=== PATIENT | female | born 1980 | race Hispanic/Latino ===

== ENCOUNTER 2019-10-12 13:08 | Emergency (ER) | payer BC ==
[2019-10-12 15:44] LABS: Urine Blood NEGATIVE (NEG); Urine Glucose NEGATIVE (NEG); Urine Protein NEGATIVE (NEG); Urine Specific Gravity 1.015 (1.005-1.030); Urine pH 7.5 (5.0-7.0)
--- NOTE | 2019-10-12 16:41 | ER ---
Nurse's Notes [facility] Name: Shy Cuadra Age: 39 yrs Sex: Female : 1980 Arrival Date: 10/12/2019 Time: 13:09 Bed 16 Private MD: Diagnosis: Dizziness and giddiness Presentation: 10/12 13:36 Presenting complaint: Patient states: "I'm taking a class at the [email or web address], and i was at 1 class and right as it ended I felt like I was going to faint or pass out" Patient reports that she was still sitting at the time, but she leaned over her backpack to put her stuff in it. Patient reports that she is still having dizziness on and off, along with palpitations. Transition of care: patient was not received from another setting of care. Onset of symptoms was October 12, 2019. Risk Assessment: Do you want to hurt yourself or someone else? Patient reports no desire to harm self or others. Initial Sepsis Screen: Does the patient meet any 2 criteria? HR > 90 bpm. No. Patient's initial sepsis screen is negative. Does the patient have a suspected source of infection? Yes: Acute abdominal pain. Care prior to arrival: None. 13:36 Method Of Arrival: Ambulatory aj1 13:36 Acuity: DEEPAK 3 aj1 Triage Assessment: 13:38 General: Appears in no apparent distress. comfortable, Behavior is calm, cooperative, aj1 appropriate for age. Pain: Complains of pain in right upper quadrant and left upper quadrant. Neuro: Level of Consciousness is awake, alert, confused. Neuro: Reports dizziness. Cardiovascular: Patient's skin is warm and dry. Cardiovascular: Reports palpitations. Respiratory: Airway is patent Respiratory effort is even, unlabored, Respiratory pattern is regular, symmetrical. 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 - Social history:: Smoking status: Patient/guardian denies using tobacco, Patient/guardian denies using alcohol, street drugs, The patient lives with family. - Ebola Screening: : Patient denies travel to an Ebola-affected area in the 21 days before illness onset. - Family history:: not pertinent. Screenin:40 Abuse screen: Denies threats or abuse. Denies injuries from another. Nutritional bp screening: No deficits noted. Tuberculosis screening: No symptoms or risk factors identified. Fall Risk None identified. Assessment: 13:40 General: SEE TRIAGE NOTE. bp 16:00 Reassessment: ALL CURRENT ORDERS COMPLETED, PT AMBULATORY WITH STEADY GAIT. bp 17:01 Reassessment: PT D/C HOME AMBULATORY WITH FAMILY, DX WITH DIZZINESS. bp Vital Signs: 13:38 BP 147 / 90; Pulse 80; Resp 18; Temp 97.4; Pulse Ox 96% on R/A; Weight 86.18 kg (R); aj1 Height 5 ft. 5 in. (165.10 cm) (R); Pain 8/10; 15:07 BP 126 / 81; Pulse 85; Resp 16; Pulse Ox 99% ; bp 16:00 BP 122 / 84; Pulse 76; Resp 16; Pulse Ox 99% ; bp 17:02 BP 131 / 79; Pulse 81; Resp 16; Temp 97.5; Pulse Ox 99% ; bp 13:38 Body Mass Index 31.62 (86.18 kg, 165.10 cm) aj1 ED Course: 13:09 Patient arrived in ED. as 13:37 Triage completed. aj1 13:38 Arm band placed on Patient placed in waiting room, Patient notified of wait time. aj1 13:40 Patient has correct armband on for positive identification. Bed in low position. Call bp light in reach. Side rails up X2. 13:53 EKG completed in triage. Results shown to MD. aj1 14:37 Mark Simmons, RN is Primary Nurse. bp 14:38 Lizette Quesada MD is Attending Physician. ma2 17:02 No provider procedures requiring assistance completed. Patient did not have IV access bp during this emergency room visit. Administered Medications: No medications were administered Outcome: 16:39 Discharge ordered by . ma2 17:02 Discharged to home ambulatory, with family. bp 17:02 Condition: stable 17:02 Discharge instructions given to patient, Instructed on discharge instructions, follow up and referral plans. medication usage, Demonstrated understanding of instructions, follow-up care, medications, Prescriptions given X 1. 17:03 Patient left the ED. bp Signatures: Corinna Adler RN RN aj1 Yesenia Urias Brian, RN RN bp Lizette Quesada MD MD ma2
--- NOTE | 2019-10-12 16:41 | EDPHYS ---
Physician Documentation [facility] Name: Shy Cuadra Age: 39 yrs Sex: Female : 1980 Arrival Date: 10/12/2019 Time: 13:09 Bed 16 Private MD: ED Physician Lizette Quesada HPI: 10/12 15:16 This 39 yrs old Female presents to ER via Ambulatory with complaints of Near ma2 Syncope. 15:16 The patient has experienced near-syncope. Onset: The symptoms/episode began/occurred ma2 suddenly, 1 hour(s) ago. Associated signs and symptoms: Pertinent negatives: abdominal pain, blurred vision, confusion, diarrhea, dizziness, headache. Current symptoms: Currently, the patient is not experiencing any symptoms. The patient has not experienced similar symptoms in the past. resolved. 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 - Social history:: Smoking status: Patient/guardian denies using tobacco, Patient/guardian denies using alcohol, street drugs, The patient lives with family. - Ebola Screening: : Patient denies travel to an Ebola-affected area in the 21 days before illness onset. - Family history:: not pertinent. ROS: 15:16 Constitutional: Negative for fever, chills, and weight loss, Cardiovascular: Negative ma2 for chest pain, palpitations, and edema, Respiratory: Negative for shortness of breath, cough, wheezing, and pleuritic chest pain, Abdomen/GI: Negative for abdominal pain, nausea, diarrhea, and constipation, MS/Extremity: Negative for injury and deformity, Skin: Negative for injury, rash, and discoloration. 15:16 All other systems are negative. Exam: 15:16 Constitutional: This is a well developed, well nourished patient who is awake, alert, ma2 and in no acute distress. Head/Face: Normocephalic, atraumatic. ENT: Nares patent. No nasal discharge, no septal abnormalities noted. Tympanic membranes are normal and external auditory canals are clear. Oropharynx with no redness, swelling, or masses, exudates, or evidence of obstruction, uvula midline. Mucous membranes moist. Neck: Trachea midline, no thyromegaly or masses palpated, and no cervical lymphadenopathy. Supple, full range of motion without nuchal rigidity, or vertebral point tenderness. No Meningismus. Chest/axilla: Normal chest wall appearance and motion. Nontender with no deformity. No lesions are appreciated. Cardiovascular: Regular rate and rhythm with a normal S1 and S2. No gallops, murmurs, or rubs. Normal PMI, no JVD. No pulse deficits. Respiratory: Lungs have equal breath sounds bilaterally, clear to auscultation and percussion. No rales, rhonchi or wheezes noted. No increased work of breathing, no retractions or nasal flaring. Abdomen/GI: Soft, non-tender, with normal bowel sounds. No distension or tympany. No guarding or rebound. No evidence of tenderness throughout. Skin: Warm, dry with normal turgor. Normal color with no rashes, no lesions, and no evidence of cellulitis. MS/ Extremity: Pulses equal, no cyanosis. Neurovascular intact. Full, normal range of motion. Neuro: Awake and alert, GCS 15, oriented to person, place, time, and situation. Cranial nerves II-XII grossly intact. Motor strength 5/5 in all extremities. Sensory grossly intact. Cerebellar exam normal. Normal gait. Vital Signs: 13:38 BP 147 / 90; Pulse 80; Resp 18; Temp 97.4; Pulse Ox 96% on R/A; Weight 86.18 kg (R); aj1 Height 5 ft. 5 in. (165.10 cm) (R); Pain 8/10; 15:07 BP 126 / 81; Pulse 85; Resp 16; Pulse Ox 99% ; bp 16:00 BP 122 / 84; Pulse 76; Resp 16; Pulse Ox 99% ; bp 17:02 BP 131 / 79; Pulse 81; Resp 16; Temp 97.5; Pulse Ox 99% ; bp 13:38 Body Mass Index 31.62 (86.18 kg, 165.10 cm) aj1 MDM: 14:38 Patient medically screened. ma2 15:16 Differential Diagnosis: cardiac arrhythmia, drug effect, emotional response, vasovagal ma2 episode. Data reviewed: vital signs. 16:39 Counseling: I had a detailed discussion with the patient and/or guardian regarding: the ma2 historical points, exam findings, and any diagnostic results supporting the discharge/admit diagnosis, the presence of at least one elevated blood pressure reading (>120/80) during this emergency department visit, the need for outpatient follow up. Response to treatment: the patient's symptoms have resolved after treatment. 10/12 15:23 Order name: Urine Dipstick--Ancillary (enter results); Complete Time: 16:39 bd 10/12 15:23 Order name: Urine --Ancillary (enter results); Complete Time: 16:39 bd 10/12 14:44 Order name: Urine Dipstick-Ancillary (obtain specimen); Complete Time: 15:07 ma2 10/12 14:44 Order name: EKG - Nurse/Tech; Complete Time: 14:49 ma2 10/12 15:07 Order name: Urine Test (obtain specimen); Complete Time: 15:07 bp 10/12 15:16 Order name: EKG Electrocardiogram; Complete Time: 16:15 EDMS Administered Medications: No medications were administered Disposition: 10/12/19 16:39 Discharged to Home. Impression: Dizziness and giddiness. - Condition is Stable. - Discharge Instructions: Dizziness. - Prescriptions for Ativan 0.5 mg Oral Tablet - take 1 tablet by ORAL route every 8 hours As needed; 20 tablet. - Medication Reconciliation Form, Thank You Letter, Antibiotic Education, Prescription Opioid Use form. - Follow up: Private Physician; When: Tomorrow; Reason: If symptoms return, Continuance of care. Signatures: Dispatcher [employer] [facility] Corinna Adler RN RN aj1 Mark Simmons RN RN bp Lizette Quesada MD MD ma2 Corrections: (The following items were deleted from the chart) 17:03 16:39 10/12/2019 16:39 Discharged to Home. Impression: Dizziness and giddiness. bp Condition is Stable. Prescriptions for Ativan 0.5 mg Oral Tablet - take 1 tablet by ORAL route every 8 hours As needed; 20 tablet. and Forms are Medication Reconciliation Form, Thank You Letter, Antibiotic Education, Prescription Opioid Use. Follow up: Private Physician; When: Tomorrow; Reason: If symptoms return, Continuance of care. ma2
[2019-10-12 18:01] VITALS: O2SAT 99
[2019-10-12 18:04] VITALS: BP 131/79; TEMP 97.5
--- NOTE | 2019-10-12 18:35 | EKG ---
Test Date: 2019-10-12 Test Time: 13:47:56 Quarry Manager: DANIEL MEASUREMENT RESULTS: Intervals: Rate: 82 VA: 156 QRSD: 84 QT: 368 QTc: 429 Leonardo: P: 15 VA: 156 QRS: 25 T: 20 INTERPRETIVE STATEMENTS: Normal sinus rhythm Normal ECG No previous ECG available for comparison Electronically Signed On 10-12-19 18:33:20 HIGH SCHOOL TEACHER by Sheldon Herrera
== END 2019-10-12 17:03 | disposition home or self-care (01) ==
LOC: ER 13:08
DX: R42 Dizziness and giddiness (principal)
CPT/HCPCS: 81003; 81025; 93005; 99282

== ENCOUNTER 2022-09-21 23:58 | Observation (INO) | payer BC ==
[2022-09-22 00:43] LABS: Urine Blood 3+ (Negative); Urine Glucose Negative (Negative); Urine Protein Negative (Negative); Urine Specific Gravity 1.015 (1.005-1.030)
[2022-09-22 00:46] LABS: Absolute Lymphocytes (CBC) 4.4 K/uL (0.7-4.9); Hematocrit 40.1 % (36.0-45.0); Lymphocytes % 32.7 % (15.3-44.8); MCV 85.6 fL (80-100); MPV 6.6 fL (7.6-11.3); RBC Red Blood Cell Count 4.68 M/uL (3.86-4.86)
[2022-09-22 01:00] LABS: Albumin 3.8 g/dL (3.4-5.0); Bilirubin Total 0.3 mg/dL (0.2-1.0); Potassium 3.8 mmol/L (3.5-5.1); Protein, Total 8.4 g/dL (6.4-8.2)
[2022-09-22 01:07] LABS: Urine Specific Gravity/Preg 1.015 (1.005-1.030)
[2022-09-22 01:16] LABS: Urine Bacteria <20 /HPF (<20); Urine RBC >50 /HPF (None Seen)
[2022-09-22] MEDS ORDERED: ONDANSETRON 4 MG/2 ML VIAL ONE ×3 (01:57→17:02)
[2022-09-22] MEDS ORDERED: KETOROLAC 30 MG/ML INJ ONE ×2 (01:57→15:30)
[2022-09-22] MEDS ORDERED: CEFTRIAXONE 1000 MG/VIAL ONE (01:57)
[2022-09-22] MEDS ORDERED: NA CHLORIDE 0.9% 1,000 ML ONE (01:57)
--- NOTE | 2022-09-22 03:01 | ER ---
Nurse's Notes [facility] Name: Shy Cuadra Age: 42 yrs Sex: Female : 1980 Arrival Date: 09/22/2022 Time: 00:01 Bed 17 Private MD: Diagnosis: Upper abdominal pain, unspecified;Cholecystitis, unspecified;Elevated white blood cell count;Obesity, unspecified;Other intestinal obstruction-small bowel obstruction, closed loop Presentation: 09/22 00:15 Chief complaint: RUQ pain that radiates to right flank and back that started 4 hours hb ago. Coronavirus screen: At this time, the client does not indicate any symptoms associated with coronavirus-19. Ebola Screen: No symptoms or risks identified at this time. Risk Assessment: Do you want to hurt yourself or someone else? Patient reports no desire to harm self or others. Onset of symptoms was September 22, 2022. 00:15 Method Of Arrival: Ambulatory hb 00:15 Acuity: DEEPAK 3 hb Historical: - Allergies: 00:16 No Known Allergies; hb - PMHx: 00:16 None; hb - PSHx: 00:16 partial thyroidectomy; hb - Immunization history:: Adult Immunizations up to date. - Social history:: Smoking status: Patient denies any tobacco usage or history of. - Family history:: not pertinent. Screenin:45 Abuse screen: Denies threats or abuse. Nutritional screening: No deficits noted. jb4 Tuberculosis screening: No symptoms or risk factors identified. Fall Risk None identified. Assessment: 00:45 General: Appears in no apparent distress. uncomfortable, Behavior is calm, cooperative, jb4 appropriate for age. Pain: Complains of pain in right upper quadrant Pain does not radiate. Pain currently is 8 out of 10 on a pain scale. Neuro: Level of Consciousness is awake, alert, obeys commands, Oriented to person, place, time, situation. Cardiovascular: Patient's skin is warm and dry. Respiratory: Airway is patent Respiratory effort is even, unlabored, Respiratory pattern is regular, symmetrical. GI: Abdomen is round non-distended, obese, Reports upper abdominal pain, nausea. : No signs and/or symptoms were reported regarding the genitourinary system. EENT: No signs and/or symptoms were reported regarding the EENT system. Derm: Skin is intact, Skin is pink, warm \T\ dry. Musculoskeletal: Circulation, motion, and sensation intact. Range of motion: intact in all extremities. 02:00 Reassessment: Patient appears in no apparent distress at this time. Patient and/or jb4 family updated on plan of care and expected duration. Pain level reassessed. Patient is alert, oriented x 3, equal unlabored respirations, skin warm/dry/pink. Patient states feeling better. 03:49 Reassessment: Patient appears in no apparent distress at this time. Patient and/or jb4 family updated on plan of care and expected duration. Pain level reassessed. Patient is alert, oriented x 3, equal unlabored respirations, skin warm/dry/pink. Denies nausea at this time. 03:54 Reassessment: Pt refusing N/G tube at this time. Denies nausea or vomiting. Provider jb4 notified, informed to cancel X-ray. Vital Signs: 00:15 BP 161 / 106; Pulse 77; Resp 16; Temp 98.5; Pulse Ox 100% on R/A; Weight 93.44 kg; hb Height 5 ft. 4 in. (162.56 cm); Pain 9/10; 03:00 BP 136 / 75; Pulse 70; Resp 16; Pulse Ox 100% on R/A; jb4 00:15 Body Mass Index 35.36 (93.44 kg, 162.56 cm) hb ED Course: 00:01 Patient arrived in ED. bp1 00:16 Triage completed. hb 00:16 Arm band placed on. hb 00:24 Inserted saline lock: 20 gauge in right antecubital area, using aseptic technique. hb Blood collected. 00:45 Patient has correct armband on for positive identification. Placed in gown. Bed in low jb4 position. Call light in reach. Side rails up X 1. Client placed on continuous cardiac and pulse oximetry monitoring. NIBP monitoring applied. 00:47 Urine --Ancillary (enter results) Sent. tw 00:47 Urine Microscopic Only Sent. tw 00:47 CBC with Diff Sent. tw 00:47 CMP Sent. tw 00:47 Lipase Sent. tw5 01:34 Dl Howe MD is Attending Physician. danish 01:36 Inserted saline lock: 18 gauge in right antecubital area, using aseptic technique. IV jb4 discontinued, intact, bleeding controlled, No redness/swelling at site. Pressure dressing applied. 02:36 CT Abd/Pelvis - IV Contrast Only In Process Unspecified. EDMS 02:51 US Abdomen Limited In Process Unspecified. EDMS 02:59 Darnell Kaur MD is Hospitalizing Provider. [facility] 03:54 Darnell Whyte, RN is Primary Nurse. jb4 03:55 No provider procedures requiring assistance completed. Patient admitted, IV remains in jb4 place. Administered Medications: 02:13 Drug: Ketorolac 30 mg Route: IVP; Site: right antecubital; jb4 03:21 Follow up: Response: No adverse reaction; Marked relief of symptoms jb4 02:13 Drug: Zofran (Ondansetron) 4 mg Route: IVP; Site: right antecubital; jb4 03:20 Follow up: Response: No adverse reaction; Marked relief of symptoms jb4 03:02 Drug: NS 0.9% 1000 ml Route: IV; Rate: 1 bolus; Site: right antecubital; jb4 03:02 Drug: Rocephin (cefTRIAXone) 1 grams Route: IV; Rate: per protocol; Site: right jb4 antecubital; 03:05 Follow up: Response: No adverse reaction; IV Status: Completed infusion; IV Intake: [id number] 03:37 Drug: Zosyn (piperacillin-tazobactam) 3.375 grams Route: IVPB; Infused Over: 60 mins; jb4 Site: right antecubital; Medication: 03:56 VIS not applicable for this client. jb4 Intake: 03:05 IV: 10ml; Total: 10ml. jb4 Outcome: 03:00 Decision to Hospitalize by Provider. [facility] 03:55 Admitted to Med/surg accompanied by tech, via wheelchair, room 220, with chart. jb4 03:55 Condition: stable 03:55 Discharge instructions given to patient, family, Instructed on the need for admit, Demonstrated understanding of instructions. 04:20 Patient left the ED. jb4 Signatures: Dispatcher [employer] Dl Matthews MD MD cha Baxter, Heather, RN RN Darnell Whyte RN RN jb4 Kelsey Ferrell Tiffany tw5 Corrections: (The following items were deleted from the chart) 03:45 03:20 Response: No adverse reaction elie jb4 03:57 03:54 Reassessment: Pt refusing N/G tube at this time. Denies nausea or vomiting. jb4 jb4
--- NOTE | 2022-09-22 03:01 | EDPHYS ---
Physician Documentation [facility] Name: Shy Cuadra Age: 42 yrs Sex: Female : 1980 Arrival Date: 09/22/2022 Time: 00:01 Bed 17 Private MD: SHAHZAD Physician Dl oHwe HPI: 09/22 02:11 This 42 yrs old Female presents to ER via Ambulatory with complaints of danish Abdominal Pain. 02:11 The patient presents with abdominal pain in the epigastric area, in the upper abdomen, danish abdominal distention in the upper abdomen, in the lower abdomen. Onset: The symptoms/episode began/occurred just prior to arrival. The patient presents with pain that is acute, with no known mechanism of injury. The symptoms are located in the left mid back and right mid back. Onset: The symptoms/episode began/occurred just prior to arrival. The pain radiates. Modifying factors: The patient symptoms are alleviated by nothing, the patient symptoms are aggravated by any movement. Severity of symptoms: At their worst the symptoms were mild, moderate, in the emergency department the symptoms are unchanged. The symptoms radiate to back. Associated signs and symptoms: none. Modifying factors: The symptoms are alleviated by nothing, the symptoms are aggravated by food. Severity of pain: At its worst the pain was moderate in the emergency department the pain is unchanged. The patient has experienced similar episodes in the past, several times. Historical: - Allergies: 00:16 No Known Allergies; hb - PMHx: 00:16 None; hb - PSHx: 00:16 partial thyroidectomy; hb - Immunization history:: Adult Immunizations up to date. - Social history:: Smoking status: Patient denies any tobacco usage or history of. - Family history:: not pertinent. ROS: 02:11 Constitutional: Negative for fever, chills, and weight loss, Eyes: Negative for injury, danish pain, redness, and discharge, ENT: Negative for injury, pain, and discharge, Neck: Negative for injury, pain, and swelling, Cardiovascular: Negative for chest pain, palpitations, and edema, Respiratory: Negative for shortness of breath, cough, wheezing, and pleuritic chest pain, Back: Negative for injury and pain, : Negative for injury, bleeding, discharge, and swelling, MS/Extremity: Negative for injury and deformity, Skin: Negative for injury, rash, and discoloration, Neuro: Negative for headache, weakness, numbness, tingling, and seizure, Psych: Negative for depression, anxiety, suicide ideation, homicidal ideation, and hallucinations, Allergy/Immunology: Negative for hives, rash, and allergies, Endocrine: Negative for neck swelling, polydipsia, polyuria, polyphagia, and marked weight changes, Hematologic/Lymphatic: Negative for swollen nodes, abnormal bleeding, and unusual bruising. 02:11 Abdomen/GI: Positive for abdominal pain, nausea, of the epigastric area, right upper quadrant and left upper quadrant. Exam: 02:11 Constitutional: This is a well developed, well nourished patient who is awake, alert, danish and in no acute distress. Head/Face: Normocephalic, atraumatic. Eyes: Pupils equal round and reactive to light, extra-ocular motions intact. Lids and lashes normal. Conjunctiva and sclera are non-icteric and not injected. Cornea within normal limits. Periorbital areas with no swelling, redness, or edema. ENT: Nares patent. No nasal discharge, no septal abnormalities noted. Tympanic membranes are normal and external auditory canals are clear. Oropharynx with no redness, swelling, or masses, exudates, or evidence of obstruction, uvula midline. Mucous membranes moist. Neck: Trachea midline, no thyromegaly or masses palpated, and no cervical lymphadenopathy. Supple, full range of motion without nuchal rigidity, or vertebral point tenderness. No Meningismus. Chest/axilla: Normal chest wall appearance and motion. Nontender with no deformity. No lesions are appreciated. Cardiovascular: Regular rate and rhythm with a normal S1 and S2. No gallops, murmurs, or rubs. Normal PMI, no JVD. No pulse deficits. Respiratory: Lungs have equal breath sounds bilaterally, clear to auscultation and percussion. No rales, rhonchi or wheezes noted. No increased work of breathing, no retractions or nasal flaring. Abdomen/GI: Soft, non-tender, with normal bowel sounds. No distension or tympany. No guarding or rebound. No evidence of tenderness throughout. Back: No spinal tenderness. No costovertebral tenderness. Full range of motion. Skin: Warm, dry with normal turgor. Normal color with no rashes, no lesions, and no evidence of cellulitis. MS/ Extremity: Pulses equal, no cyanosis. Neurovascular intact. Full, normal range of motion. Neuro: Awake and alert, GCS 15, oriented to person, place, time, and situation. Cranial nerves II-XII grossly intact. Motor strength 5/5 in all extremities. Sensory grossly intact. Cerebellar exam normal. Normal gait. Psych: Awake, alert, with orientation to person, place and time. Behavior, mood, and affect are within normal limits. Vital Signs: 00:15 BP 161 / 106; Pulse 77; Resp 16; Temp 98.5; Pulse Ox 100% on R/A; Weight 93.44 kg; hb Height 5 ft. 4 in. (162.56 cm); Pain 9/10; 03:00 BP 136 / 75; Pulse 70; Resp 16; Pulse Ox 100% on R/A; jb4 00:15 Body Mass Index 35.36 (93.44 kg, 162.56 cm) hb MDM: 01:34 Patient medically screened. danish 02:15 Differential diagnosis: Peptic Ulcer Ureterolithiasis cholecystitis, Cholelithiasis, danish diverticulitis, gastritis, non-specific abd pain, pancreatitis. Data reviewed: vital signs, nurses notes, lab test result(s), radiologic studies, CT scan, ultrasound. Data interpreted: air sampling and monitoring: rate is 77 beats/min, rhythm is regular, Pulse oximetry: on room air. Counseling: I had a detailed discussion with the patient and/or guardian regarding: the historical points, exam findings, and any diagnostic results supporting the discharge/admit diagnosis, lab results, radiology results. 09/22 00:18 Order name: CBC with Diff hb 09/22 00:18 Order name: CMP hb 09/22 00:18 Order name: Lipase hb 09/22 00:44 Order name: Urine Dipstick-Ancillary; Complete Time: 01:35 EDMS 09/22 00:45 Order name: Urine Microscopic Only hb 09/22 00:46 Order name: Urine --Ancillary (enter results) ds4 09/22 00:55 Order name: CBC with Automated Diff EDMS 09/22 01:01 Order name: Comprehensive Metabolic Panel EDMS 09/22 01:01 Order name: Lipase EDMS 09/22 01:07 Order name: Urine --Ancillary EDMS 09/22 01:17 Order name: Urine Microscopic Only EDMS 09/22 02:08 Order name: CT Abd/Pelvis - IV Contrast Only [facility] 09/22 03:03 Order name: SARS RAPID ds4 09/22 00:18 Order name: IV Saline Lock; Complete Time: 00:24 hb 09/22 00:18 Order name: Labs collected and sent; Complete Time: 00:47 hb 09/22 00:18 Order name: Urine Dipstick-Ancillary (obtain specimen); Complete Time: 00:46 hb 09/22 00:18 Order name: Urine Test (obtain specimen); Complete Time: 00:46 hb 09/22 02:08 Order name: US Abdomen Limited [facility] 09/22 03:43 Order name: NPO; Complete Time: 03:45 [facility] 09/22 03:43 Order name: Abdomen 1 View (KUB) XRAY [facility] Administered Medications: 02:13 Drug: Ketorolac 30 mg Route: IVP; Site: right antecubital; jb4 03:21 Follow up: Response: No adverse reaction; Marked relief of symptoms jb4 02:13 Drug: Zofran (Ondansetron) 4 mg Route: IVP; Site: right antecubital; jb4 03:20 Follow up: Response: No adverse reaction; Marked relief of symptoms jb4 03:02 Drug: NS 0.9% 1000 ml Route: IV; Rate: 1 bolus; Site: right antecubital; jb4 03:02 Drug: Rocephin (cefTRIAXone) 1 grams Route: IV; Rate: per protocol; Site: right jb4 antecubital; 03:05 Follow up: Response: No adverse reaction; IV Status: Completed infusion; IV Intake: [id number] 03:37 Drug: Zosyn (piperacillin-tazobactam) 3.375 grams Route: IVPB; Infused Over: 60 mins; jb4 Site: right antecubital; Disposition Summary: 09/22/22 03:00 Hospitalization Ordered Provider: Darnell Kaur cha Condition: Stable danish Problem: new danish Symptoms: have improved danish Bed/Room Type: Standard danish Hospitalization Status: Inpatient Admission(09/22/22 03:44) danish Location: Telemetry/MedSur (Inpatient)(09/22/22 03:44) danish Room Assignment: 220(09/22/22 03:47) cg Diagnosis - Upper abdominal pain, unspecified danish - Cholecystitis, unspecified danish - Elevated white blood cell count danish - Obesity, unspecified danish - Other intestinal obstruction - small bowel obstruction, closed loop danish Forms: - Medication Reconciliation Form danish - SBAR form danish Signatures: Dispatcher [employer] EDMS Dl Howe MD MD cha Garcia, Cindy RN RN Smiley Martinez RN RN Darnell Whyte RN RN jb4 Corrections: (The following items were deleted from the chart) 02:16 01:37 Stone Protocol+CT.RAD.BRZ ordered. EDIL EDMS 03:39 03:00 danish 03:44 03:00 Observation danish [facility] 03:44 03:00 Telemetry/MedSurg (observation) danish danish 03:44 03:39 220 cg danish 03:47 03:44 danish 03:55 03:43 NG Tube ordered. danish jb4
[2022-09-22] MEDS ORDERED: PIPERACIL/TAZO 3.375 GM VIAL IV ONE (03:06)
[2022-09-22] MEDS ORDERED: NA CHLORIDE 0.9% 100 ML IV ONE (03:07)
[2022-09-22 03:34] LABS: SARS-CoV-2 Antigen Rapid Res Negative (Negative)
[2022-09-22] MEDS ORDERED: ONDANSETRON 4 MG/2 ML VIAL IV PRN (04:01)
[2022-09-22] MEDS ORDERED: ACETAMINOPHEN 325 MG TABLET PO PRN (04:01)
[2022-09-22 04:31] VITALS: BMI 35.3
[2022-09-22] MEDS: D5 0.45 NS 1,000 ML IV SCH ×3 (05:05→20:01)
[2022-09-22] MEDS: FAMOTIDINE 20 MG/2 ML VIAL IV SCH ×2 (08:20→20:18)
[2022-09-22] MEDS: PIPER TAZO 3.375 GM in NA CHLORIDE 0.9% 100 ML IV SCH ×2 (08:21→18:16)
--- NOTE | 2022-09-22 13:44 | P.HP ---
Date of Service: 09/22/22 PC: This 42-year-old female presented to the emergency room with severe right upper quadrant abdominal pain for diagnosis and treatment. HPC: Patient was out to dinner last night, shortly thereafter began experiencing right upper quadrant abdominal pain, radiating into her back. On further review she says she may have had this pain off and on for the last few years. However it has gradually intensified and becoming more frequent. PSHx: Negative PMHx: Recently was tested for sleep apnea, does not have results yet. Social Hx: No known allergies Sys R: No cough, wheeze, shortness of breath. No chest pain or palpitations. Denies any urinary complaints O/E: Awake alert stable HEENT: Not jaundiced Chest: Air entry equal bilaterally Abd: Mild tenderness in the right upper quadrant Tye: Intact Data: As documented cholecystitis with history consistent with gallbladder dysfunction. The CT scan also talks about a closed-loop possible obstruction I do not believe that is a true entity, we will have a look with our scopes while we were there. Impression: Cholecystitis with cholelithiasis Plan: I will taken the operating room for laparoscopic possible open cholecystectomy with a cholangiogram. The risks of this procedure have been discussed. The possibility of bleeding, infection, injury to bile ducts blood vessels and intestines has been described. The possible need for an open and or further surgeries or procedures was discussed. She understands and wants us to proceed.
[2022-09-22] MEDS ORDERED: SUCCINYLCHOLINE 20 MG/ML (10 ML) IV ONE (14:07)
[2022-09-22] MEDS ORDERED: propofoL 200 MG/20 ML VIAL IV ONE (14:07)
[2022-09-22] MEDS ORDERED: LIDOCAINE 2% MPF 5 ML VIAL ONE (14:09)
[2022-09-22] MEDS ORDERED: ROCURONIUM 50 MG/5 ML VIAL IV ONE (14:09)
[2022-09-22] MEDS ORDERED: FENTANYL CITR 100 MCG/2 ML ONE ×2 (14:09→15:49)
[2022-09-22] MEDS ORDERED: Ringers Lactate 1,000 ML IV ONE (14:16)
[2022-09-22] MEDS ORDERED: ACETAMINOPHEN 500 MG TAB ONE (14:34)
[2022-09-22] MEDS ORDERED: CELECOXIB 100 MG CAPSULE ONE (14:35)
[2022-09-22] MEDS ORDERED: dexAMETHasone 10 MG/ML VIAL ONE (15:30)
[2022-09-22] MEDS ORDERED: GLYCOPYRROLATE 0.2 MG/ML SYR ONE (16:17)
[2022-09-22] MEDS ORDERED: NEOSTIGMINE 1 MG/ML -10 ML VIAL ONE (16:18)
--- NOTE | 2022-09-22 16:45 | RAD REPORT ---
EXAM DESCRIPTION: RAD - Cholangiogram Oper-Xray Or - 09/22/2022 4:36 pm FINDINGS: There were 15 portable C-arm views submitted from a fluoroscopic assisted intraoperative c holangiogram. Fluoro time was 0.6 minutes. Cumulative dose was 15.9 mGy. Initial images show a well opacified intra hepatic duct network with no abnormality seen. Balloon tip filling defect is seen in the common hepatic duct at the cystic duct level. Small air bubbles are burks spected. On the final available image the common bile duct opacifies with no dilatation. No stricture , mass or duct stone seen.
--- NOTE | 2022-09-22 17:00 | P.OP ---
Preoperative diagnosis: Acute on chronic cholecystitis with cholelithiasis Postoperative diagnosis: The same Primary procedure: Laparoscopic cholecystectomy Secondary procedure: Cholangiogram Other procedure(s): Exploratory laparoscopy Anesthesia: General Estimated blood loss: Less than 10 cc Specimen: 1 gallbladder and contents Findings: No internal hernia Operative Technique: The patient brought the operating room placed supine on the table where after the induction of adequate general endotracheal anesthesia, the patient was p ainted with a DuraPrep solution, draped in usual aseptic manner. Attention was turned towards the umbilicus. After injecting 1.25% Marcaine a subumbilical incision was made. This was brought down through the skin and subcutaneous tissue. The Visiport was now used to enter the peritoneal cavity and created pneumoperitoneum to approximately 12 mmHg. Under direct vision a 5 mm trocar was placed in the upper midline, and 2 other 5 mm trochars on the right lateral side of the abdomen with the patient's in reverse Trendelenburg and the table turned to the left we were able to visualize the right upper quadrant. We saw very tense and inflamed gallbladder. A aspirating needle was placed into the gallbladder so that we could place a grasper on the fundus. This having been done another grasper was placed on by Pemberton's pouch. We applied lateral traction we were finally able to dissect out and expose the cystic duct and artery. A clip was placed on the cystic duct at its junction with the gallbladder. An opening was made into the cystic duct through which we obtained a cholangiogram. It was interesting to note that this is a rather short cystic duct and applying traction on it almost occluded it. We were finally able to get a good cholangiogram that showed flow of contrast into the duodenum. The catheter was removed. 1 clip was placed on the cystic duct due to the shortness of the duct itself. Good closure having been obtained the gallbladder was now dissected free from the liver bed, placed into an Endo Catch, and brought out through the umbilical trocar site We now looked down into the true pelvis. As well as the abdominal cavity. There was talk of an internal possible hernia where there was a transition zone between the junction and the ileum. This was seen on her CT scan. The small bowel was run from the ligament of Treitz down to the ileocecal valve. We reviewed that area there is no mechanical obstruction this is more of a observation we did not see any gross pathology associated with it. There is no obstruction at this time. With this in mind attention was turned back towards the umbilicus. The umbilical defect was now closed using the Endo Close and an absorbable suture. [place] were then used to approximate the skin edges after deflating the pneumoperitoneum. At the end of procedure she was in a stable condition was sent to the recovery room. Needle sponge instrument count were correct. No drains were placed.
[2022-09-22] MEDS ORDERED: PROMETHAZINE INJ 25 MG/ML AMP ONE (17:10)
[2022-09-22] MEDS: HYDROCODONE/APAP 7.5/325 MG TAB PO PRN (20:29)
[2022-09-23] MEDS: PIPER TAZO 3.375 GM in NA CHLORIDE 0.9% 100 ML IV SCH ×3 (00:46→16:06)
[2022-09-23] MEDS: D5 0.45 NS 1,000 ML IV SCH ×3 (02:32→12:01)
[2022-09-23] MEDS: HYDROCODONE/APAP 7.5/325 MG TAB PO PRN ×2 (02:34→16:33)
[2022-09-23 03:46] LABS: Absolute Lymphocytes (CBC) 1.3 K/uL (0.7-4.9); Hematocrit 33.5 % (36.0-45.0); Lymphocytes % 12.7 % (15.3-44.8); MCV 85.9 fL (80-100); MPV 6.9 fL (7.6-11.3)
[2022-09-23 04:01] LABS: Bilirubin Direct 0.1 mg/dL (0-0.2); Bilirubin Total 0.4 mg/dL (0.2-1.0); Potassium 4.2 mmol/L (3.5-5.1); Protein, Total 6.9 g/dL (6.4-8.2)
[2022-09-23] MEDS: MORPHINE 2 MG/ML SYR IV PRN ×2 (06:34→12:55)
[2022-09-23] MEDS: FAMOTIDINE 20 MG/2 ML VIAL IV SCH (07:50)
[2022-09-23 09:08] VITALS: O2SAT 100
[2022-09-23] MEDS ORDERED: MAGNESIUM HYDROXIDE 8% 30 ML PO ONE (10:00)
--- NOTE | 2022-09-23 14:50 | P.DS ---
Admission Date: 09/22/22 Discharge Date: 09/23/22 Disposition: ROUTINE DISCHARGE Discharge Condition: GOOD Reason for Admission: Acute postoperative abdominal pain Procedures: Laparoscopic cholecystectomy, intraoperative cholangiogram, tap block Brief History of Present Illness: This patient presented to the emergency room with severe right upper quadrant abdominal pain for diagnosis and treatment Hospital Course: The patient was evaluated in the emergency room. She was in a found to have acute on chronic cholecystitis with cholelithiasis. She was brought to the operating room where she underwent a laparoscopic cholecystectomy and a intraoperative cholangiogram. The cholangiogram was normal. She was admitted postoperatively for observation and pain control. Today she is up ambulating, tolerating a diet, and is anxious to go home. She is deemed fit for discharge. Vital Signs/Physical Exam: Temp Pulse Resp BP Pulse Ox 97.9 F 80 16 143/76 H 100 09/23/22 12:00 09/23/22 12:00 09/23/22 12:55 09/23/22 12:00 09/23/22 12:55 Laboratory Data at Discharge: WBC 10.20 K/uL (4.3-10.9) 09/23/22 02:55 Hgb 11.6 g/dL (12.0-15.0) L D 09/23/22 02:55 Hct 33.5 % (36.0-45.0) L 09/23/22 02:55 Plt Count 322 K/uL (152-406) 09/23/22 02:55 Sodium 137 mmol/L (136-145) 09/23/22 02:55 Potassium 4.2 mmol/L (3.5-5.1) 09/23/22 02:55 BUN 8 mg/dL (7-18) 09/23/22 02:55 Creatinine 0.75 mg/dL (0.55-1.3) 09/23/22 02:55 Glucose 203 mg/dL (74-106) H 09/23/22 02:55 Total Bilirubin 0.4 mg/dL (0.2-1.0) 09/23/22 02:55 AST 28 U/L (15-37) 09/23/22 02:55 ALT 45 U/L (12-78) 09/23/22 02:55 Alkaline Phosphatase 66 U/L (45-117) D 09/23/22 02:55 Lipase 47 U/L (73-393) L 09/23/22 02:55 Home Medications: NK [No Home Meds] 09/22/22 Physician Discharge Instructions: DC IV, discharge home. See me next Thursday. Continue incentive spirometry, ambulated home, you may shower. Change Band-Aids as needed. Any questions or problems, go to the emergency room, or contact me. I have called in a prescription for pain medicine to [facility] in [place]. [Hydrocodone, 1 p.o. every 6 hours as needed pain quantity 20.) Diet: Regular Activity: Ad gordon Followup: Abraham Guajardo MD [Primary Care Provider] -
--- NOTE | 2022-09-23 16:34 | RAD REPORT ---
EXAM DESCRIPTION: US - Abdomen Exam Limited - 09/22/2022 2:51 am CLINICAL HISTORY: 42 years Female ABD PAIN TECHNIQUE: Limited sonographic imaging of the right upper quadrant was performed on 09/22/2022 at 2: 45 AM. COMPARISON: CT abdomen and pelvis performed on 09/22/2022 at 2:27 AM. FINDINGS: Sonographic imaging of the right upper quadrant reveals multiple shadowing intraluminal ec hoes within the gallbladder lumen consistent with gallstones. These could not be identified on the ea rlier CT scan. There is no evidence of gallbladder wall thickening. The gallbladder wall measures glynn roximately 2.0 mm in diameter. There is no pericholecystic fluid. No sonographic Garner sign was dete cted by the technologist. The common bile duct measures approximately 3.4 mm in diameter. IMPRESSION: Cholelithiasis without evidence of biliary ductal dilatation, gallbladder wall thickenin g or pericholecystic fluid. No sonographic Garner sign was detected by the technologist. Electronically signed by: Gloria Sanches DO 09/22/2022 3:23 AM CDT Due to temporary technical issues with the PACS/Fluency reporting system, reports are being signed by the in house radiologists without review as a courtesy to insure prompt reporting. The interpreting radiologist is fully responsible for the content of the report.
--- NOTE | 2022-09-23 16:35 | RAD REPORT ---
EXAM DESCRIPTION: CT - Abdomen Pelvis W Contrast - 09/22/2022 2:34 am ADDENDUM #1 These critical findings were discussed with Dr. Dl Howe on 09/22/2022 at 3:27 AM central time. Electronically signed by: Gloria Sanches 09/22/2022 3:28 AM CDT End of Addendum EXAM DESCRIPTION: CT abdomen and pelvis with IV contrast CLINICAL HISTORY: 42 years Female Abdominal pain, acute, nonlocalized TECHNIQUE: Axial CT imaging of the abdomen and pelvis was performed following the administration of intravenous contrast.. Oral contrast was not administered. Sagittal and coronal reconstructed image s were then performed. The CT study is performed according to ALARA (as low as reasonably achievabl e) or ALARA/IMAGE GENTLY, with automatic adjustment of mA and/or kV according to patient size. Performed on: 09/22/2022 with 2:31 AM. COMPARISON: No prior studies were available for comparison. FINDINGS: Lung bases: The lung bases are clear. Liver: The liver is normal in size and configuration. No focal hepatic abnormalities are identified. Liver attenuation is within normal limits. The hepatic and portal veins are patent. Spleen: The spleen is normal in size, configuration and attenuation. Gallbladder and bile duct: The gallbladder is well distended and unremarkable. There is no evidence of cholelithiasis on this examination. There is no biliary ductal dilatation. Pancreas: The pancreas is grossly normal in size and configuration. Adrenal Glands: The adrenal glands are normal in size and configuration. Kidneys: The kidneys are normal in size and configuration. There is no evidence of hydronephrosis. Th ere is no evidence of nephrolithiasis. No definite solid or cystic renal mass lesions are identified. Stomach: The stomach is moderately distended with fluid. There is no definite hiatal hernia. Bowel: There are multiple dilated fluid-filled small bowel loops. The distal small bowel is normal in caliber and contour. The colon is normal in caliber and contour. The duodenum and proximal jejunum a re grossly unremarkable. Findings are concerning for a small bowel obstruction which may be due to a closed loop obstruction. Appendix: The appendix is normal. Free air: There is no evidence of free air. Free fluid: There is a small volume of ascites Vasculature: The aorta is normal in caliber and contour. The inferior vena cava is grossly unremarkab le. Lymphadenopathy: No pathologic lymphadenopathy is identified. Bladder: The bladder is incompletely distended on this examination. Reproductive: The uterus is grossly within normal limits. Bones: No acute osseous abnormalities are identified. Soft tissues: No acute soft tissue abnormalities are identified. IMPRESSION: 1. CT findings concerning for a small bowel obstruction which may be due to a closed l oop obstruction. There is a small volume of ascites. There is no evidence of free air. 2. Otherwise, unremarkable CT scan of the abdomen and pelvis with contrast. Electronically signed by: Gloria Sanches DO 09/22/2022 3:20 AM CDT Due to temporary technical issues with the PACS/Fluency reporting system, reports are being signed by the in house radiologists without review as a courtesy to insure prompt reporting. The interpreting radiologist is fully responsible for the content of the report.
[2022-09-23 16:45] VITALS: BP 134/75; TEMP 97.6
== END 2022-09-23 17:00 | disposition home or self-care (01) ==
LOC: ER 23:58 → ERHOLD 09-22 03:06 → 2ND 09-22 04:03
PROVIDERS: ADMIT Surgery; ATTEND Surgery
PROC: BF502Z0 Other Imaging of Bile Ducts using Fluorescing Agent, Intraoperative (ICD-10-PCS; 2022-09-22)
PROC: 0FT44ZZ Resection of Gallbladder, Percutaneous Endoscopic Approach (ICD-10-PCS; principal; 2022-09-22 14:30)
DX: K80.12 Calculus of gallbladder with acute and chronic cholecystitis without obstruction (principal); R10.11 Right upper quadrant pain; Z20.822 Contact with and (suspected) exposure to COVID-19
CPT/HCPCS: 47563; 85025 ×2; 80048; 36415 ×2; 81025; 80076; 88304; 83690 ×2; 80053; 74177; 74300; 76705; 94010; 96375; 96374; 99285; 87811; Q9967; J2704; J2710; J2550; J0330; J2543 ×6; J2001; J3010 ×2; J1100; J2270 ×2; G0378 ×4; J7799 ×2; J7120; J7030; J2405 ×3; 81003; 81015

== ENCOUNTER 2022-11-06 16:50 | Emergency (ER) | payer BC ==
--- OUTSIDE RECORDS SUMMARY | 2022-11-06 16:53 | XMS REPORT | Continuity of Care Document ---
:1980 Author Organization [facility] t Address [address] [place] [address] Dr. Rashid. [address] [place] [address] Care Team Providers Name Role Phone Dana Ellie Jeannine Primary Care Physician ELLIE KOHLER Attending Clinician Unavailable MARC CABRERA Attending Clinician Unavailable KYA_DEANGELO_Wm Attending Clinician Unavailable GC_SON_LRichmoe Attending Clinician Unavailable Janelle Bynum Attending Clinician [phone] GC_DEANGELO_Wm Admitting Clinician Unavailable KYA_SON_LRichmoe Admitting Clinician Unavailable Payers Payer Name Policy Type Policy Number Effective Date Expiration Date Marco adams [facility] [id number] 2017 00:00:00 [facility] [place] [id number] 2017 00:00:00 Problems This patient has no known problems. Allergies, Adverse Reactions, Alerts Allergy Allergy Status Severity Reaction(s) Onset Inactive Treating Comm ents Source Name Type Date Date Clinician NO KNOWN Drug Active Univers ALLERGIE Class ity of [facility] Family History Family Member Diagnosis Comments Start Date Stop Date Source Maternal grandfather Arthritis [facility] Maternal grandfather Cancer [facility] Family member Breast cancer [facility] Family member Colon cancer [facility] Natural father Diabetes [facility] Natural father Stroke [facility] Social History Social Habit Start Date Stop Date Quantity Comments Source Tobacco use and 2022-04-02 2022-04-02 Smokeless tobacco [facility] exposure 00:00:00 00:00:00 non-user Hospital Alcohol intake 2022-04-02 2022-04-02 Ex-drinker [facility] 00:00:00 00:00:00 (finding) Hospital Alcohol Comment 2022-04-02 2022-04-02 Occasionally drink [facility] 00:00:00 00:00:00 Hospital Sex Assigned At [birth year] [facility] 00:00:00 00:00:00 Hospital Smoking Status Start Date Stop Date Source Never smoked tobacco [facility] Medications Ordered Filled Start Stop Current Ordering Indication Dosage Frequency Signature Comments Components Source Medication Medication Date Date Medication? Clinician (SIG) Name Name predniSONE 2024- No [id number] 2 po qday [facility] (DELTASONE) 06-09 for 3 days s t 20 mg 00:00: 05:59 Hospita tablet 00 :00 l cyclobenzap Yes [id number] 5mg QD Take 1 [facility]ine 5-11 tablet (5 st (FLEXERIL) 00:00: mg total) [facility] 5 mg tablet 00 by mouth l nightly as needed for muscle spasms. Vital Signs Vital Name Observation Time Observation Value Comments Source BP Diastolic 2021-03-07 00:00:00 80 mm[Hg] [facility] Height 2021-03-07 00:00:00 64 [in_i] Heidi [facility] BMI (Body Mass 2021-03-07 00:00:00 35.9 kg/m2 [facility] Index) BP Systolic 2021-03-07 00:00:00 130 mm[Hg] Heidi [facility] Body Weight 2021-03-07 00:00:00 209 [lb_av] [facility] 2022-04-02 14:56:00 122 mm[Hg] [facility] pressure Diastolic blood 2022-04-02 14:56:00 74 mm[Hg] [facility] pressure Heart rate 2022-04-02 14:56:00 68 /min [facility] Body height 2022-04-02 14:56:00 162.6 cm [facility] Body weight 2022-04-02 14:56:00 93.622 kg [facility] BMI 2022-04-02 14:56:00 35.43 kg/m2 [facility] Oxygen saturation in 2022-04-02 14:56:00 98 /min [facility] Arterial blood by Pulse oximetry Procedures Procedure Date / Time Performed Performing Clinician Sourc e XR CHEST 2 VW 2022-06-13 16:17:57 Au, [facility] URINE CULTURE 2022-04-02 15:28:00 Au, [facility] TSH WITH REFLEX TO FREE 2022-04-02 15:28:00 Au, [facility] T4 CBC WITH PLATELET AND 2022-04-02 15:28:00 Au, [facility] DIFFERENTIAL VITAMIN D 25 HYDROXY 2022-04-02 15:28:00 Au, [facility] LEVEL URINALYSIS, AUTOMATED 2022-04-02 15:28:00 Au, [facility] WITH MICROSCOPY BASIC METABOLIC PANEL 2022-04-02 15:28:00 Au, [facility] MICROSCOPIC EXAMINATION 2022-04-02 15:28:00 Au, [facility] MAMMO, screening, 2021-03-07 00:00:00 [facility] bilateral Thyroid [facility] 2007-06-23 00:00:00 [facility] Dilation and Curettage 1996-11-23 00:00:00 [facility] Plan of Care Planned Activity Planned Date Details Comments Source Future Scheduled Test 2022-09-27 HEPATITIS B [facility] 07:06:58 VACCINES (1 of 3 - 3-dose series) [code = HEPATITIS B VACCINES (1 of 3 - 3-dose series)] Future Scheduled Test 2022-09-27 [facility] 07:06:58 (#1) [code = COVID-19 VACCINE (#1)] Future Scheduled Test 2022-09-27 Hepatitis C [facility] 07:06:58 screening (procedure) [code = 590671332] Future Scheduled Test 2022-09-27 Screening for [facility] 07:06:58 malignant neoplasm of cervix (procedure) [code = 816978612] Future Scheduled Test 2022-09-27 BREAST CANCER [facility] 07:06:58 SCREENING [code = BREAST CANCER SCREENING] Future Scheduled Test 2022-09-27 INFLUENZA VACCINE [facility] 07:06:58 [code = INFLUENZA VACCINE] Diagnostic Test 2021-03-07 [place] IgE Ab [facility] Pending 00:00:00 [Units/volume] in Serum [code = 6195-2] Encounters Start End Encounter Admission Attending Care Care Encounter Source Date/Time Date/Time Type Type Clinicians Facility Department ID 2022-06-13 2022-06-13 Outpatient AU, ELLIE [facility] [id number] [place] 00:00:00 00:00:[address] 2022-06-09 2022-06-09 Telemedici Au, Ellie 1.2.840.1 [id number] [facility] 13:45:00 13:45:00 [address] Jeannine [address]254.1.[address] 3.430.2.7 Hospit a .3.574267 l .8 2022-06-09 2022-06-09 Outpatient AU, ELLIE [facility] [id number] [place] 00:00:00 00:00:[address] 2022-04-02 2022-04-02 Office Au, Ellie 1.2.840.1 [id number] [facility] 10:00:00 11:03:27 Visit Jeannine [address]4449.1.[address] 3.430.2.7 Hospit a .3.723238 l .8 2022-04-02 2022-04-02 Lab Au, Ellie 1.2.840.1 [id number] [facility] 10:30:00 10:35:[address] 3.430.2.7 Hospit a .3.618927 l .8 2022-04-02 2022-04-02 Outpatient AU, ELLIE [facility] [id number] [place] 00:00:00 00:00:[address] 2022-04-02 2022-04-02 Outpatient AU, ELLIE [facility] [id number] [place] 00:00:00 00:00:[address] 2022-04-02 2022-04-02 Travel 1.2.840.1 1.2.587.262 [id number] [facility] 00:00:00 00:00:[address] 3.430.2.7 0.2.7.3.698 Ho spita .3.454712 084.8 l .8 2022-03-19 2022-03-19 Travel 1.2.840.1 1.2.341.452 3630 [id number] [facility] 00:00:00 00:00:[address] 3.430.2.7 0.2.7.3.698 Ho spita .3.821434 084.8 l .8 2022-02-25 2022-02-25 Travel 1.2.840.1 1.2.954.267 3825 [id number] [facility] 00:00:00 00:00:[address] 3.430.2.7 0.2.7.3.698 Ho spita .3.907046 084.8 l .8 2021-06-13 2021-06-13 [id number] [facility] 15:30:00 15:30:00 [facility] 2021-06-11 2021-06-11 Emergency [facility] [id number] Univers 23:12:00 23:12:00 [facility] 2021-03-08 2021-03-08 Outpatient GC_SWHAOMC_ PRIV PRIV [id number] [facility] 05:17:00 05:17:00 Wm [id number] [facility] 2021-03-07 2021-03-07 Outpatient GC_SWHATBIC PRIV PRIV [id number] [facility] 11:11:00 11:11:00 _Darryl [id number] [facility] 2021-03-07 2021-03-07 Janelle [facility] [id number] [facility] [address] [facility]_ [facility], Office* [address], [place] [address] , Ph. 2021-03-07 2021-03-07 Outpatient BENNETT Bynum PRIV [id number] 00:00:00 00:00:00 Janelle [id number] Results Test Description Test Time Test Comments Results Result Sourc e Comments Urine culture 2022-03-[address] 02:07:00 shows less than 10,000 colony forming units of bacteria permilliliter of urine. This colony count is not generally consideredto be clinically significant. [facility] Basic metabolic panel 2022-04-03 09:08:00 Test Item Value Reference Range Interpretation Comme nts Glucose (test code = 109 mg/dL 65-99 H 2345-7) BUN (test code = 3094-0) 12 mg/dL 6-24 Creatinine (test code = 0.59 mg/dL 0.57-1.00 2160-0) eGFR (test code = 8257) 116 mL/min/1.73 See_Comment [Automated message] The system [employer] generated this result transmitted ref erence range: >=59. Th e reference range was not used to interpr et this result as normal/abnormal . BUN/creatinine ratio (test 08-15 code = 3097-3) Sodium (test code = 139 mmol/L 532-475 4757-2) Potassium (test code = 4.4 mmol/L 3.5-5.2 2823-3) Chloride (test code = 102 mmol/L 96-106 2075-0) CO2 (test code = 2027-9) 22 mmol/L 20-29 Calcium (test code = 8.8 mg/dL 8.7-10.2 80430-5) MARLENA (test code = MARLENA) Performed at: - [address] [id number] Director: Talha Villavicencio MD, Phone: [phone] Lab Interpretation (test Abnormal code = 89861-2) [facility] and [id number] 09:08:00 Test Item Value Reference Range Interpretation Comments WBC (test code = See_Comment [Automated 7785-2) message] The system which generated this result transmitted reference range : 3.4 - 10.8 x10E3/uL. The reference range was not used to interpret this result as normal/abnormal . RBC (test code = See_Comment [Automated 789-8) message] The system which generated this result transmitted reference range : 3.77 - 5.28 x10E6/uL. The reference range was not used to interpret this result as normal/abnormal . HGB (test code = 12.7 g/dL 11.1-15.9 718-7) HCT (test code = 38.1 % 34.0-46.6 4544-3) MCV (test code = 86 fL 79-97 787-2) MCH (test code = 28.8 pg 26.6-33.0 785-6) MCHC (test code = 33.3 g/dL 31.5-35.7 786-4) RDW (test code = 12.5 % 11.7-15.4 788-0) Platelet count (test See_Comment [Autom ated code = 777-3) message] The system which generated this result transmitted reference range : 150 - 450 x10E3/uL. The reference range was not used to interpret this result as normal/abnormal . Neutrophils (test 51 % Not Estab. code = 770-8) Lymphocytes (test 43 % Not Estab. code = 736-9) Monocytes (test code 5 % Not Estab. = 5905-5) Eosinophils (test 1 % Not Estab. code = 713-8) Basophils (test code 0 % Not Estab. = 706-2) Neutrophils, absolute See_Comment [Auto mated (test code = 751-8) message] The system which generated this result transmitted reference range : 1.4 - 7.0 x10E3/uL. The reference range was not used to interpret this result as normal/abnormal . Lymphocytes, absolute See_Comment H [Auto mated (test code = 731-0) message] The system which generated this result transmitted reference range : 0.7 - 3.1 x10E3/uL. The reference range was not used to interpret this result as normal/abnormal . Monocytes, absolute See_Comment [Automa vic (test code = 742-7) message] The system which generated this result transmitted reference range : 0.1 - 0.9 x10E3/uL. The reference range was not used to interpret this result as normal/abnormal . Eosinophils, absolute See_Comment [Auto mated (test code = 711-2) message] The system which generated this result transmitted reference range : 0.0 - 0.4 x10E3/uL. The reference range was not used to interpret this result as normal/abnormal . Basophils, absolute See_Comment [Automa vic (test code = 704-7) message] The system which generated this result transmitted reference range : 0.0 - 0.2 x10E3/uL. The reference range was not used to interpret this result as normal/abnormal . Immature granulocytes 0 % Not Estab. (test code = 35282-9) Immature See_Comment [Automated granulocytes, message] The absolute (test code = system which 08947-1) generated this result transmitted reference range : 0.0 - 0.1 x10E3/uL. The reference range was not used to interpret this result as normal/abnormal . MARLENA (test code = MARLENA) Performed at: [address] [place] [id number] Director: Talha Villavicencio MD, Phone: [phone] Lab Interpretation Abnormal (test code = 61088-2) [facility] automated with [id number] 09:08:00 Test Item Value Reference Range Interpretation Comments Specific gravity, 1.005-1.030 urine (test code = 5811-5) pH, urine (test code 5.0-7.5 = 5803-2) Color, UA (test code Yellow Yellow = 5778-6) Appearance (test code Clear Clear = 5767-9) WBC esterase, urine Negative Negative (test code = 5799-2) Protein, UA (test Negative Negative/Trace code = 04541-7) Glucose, urine (test Negative Negative code = 35653-9) Ketones, UA (test Negative Negative code = 2514-8) Occult blood, urine 2+ Negative A (test code = 5794-3) Bilirubin, UA (test Negative Negative code = 5770-3) Urobilinogen, UA 0.2 mg/dL 0.2-1.0 (test code = 89978-7) Nitrite, UA (test Negative Negative code = 5802-4) Microscopic See below: Microscopic was examination (test indicated and was code = 46710-3) performed. MARLENA (test code = MARLENA) Performed at: 01 - [facility] [address] [id number] Director: Talha Villavicencio MD, Phone: [phone] Lab Interpretation Abnormal (test code = 70935-7) [facility] 25 hydroxy [id number] 09:08:00 Test Item Value Reference Range Interpretation Comments Vitamin D, 18.7 ng/mL 30.0-100.0 L Vitamin D 25-hydroxy (test deficiency has been code = 32995-1) defined by [facility] and an Endocrine Socie ty practice guidel ine as alevel of se rum 25-OH vitamin D less than 20 ng /mL (1,2).The Endoc rine Society went on to further define vitamin Dinsufficiency as a level between 2 1 and 29 ng/mL (2 ).1. IOM ([place] of Medicine). 2010 . Dietary referen ce intakes for mesha cium and DRobyn [place]: The [employer] .2. Ren MF, Terence SIDDIQI, Abelardo lazo JUAN, et al. Evaluation, treatment, and prevention of vitamin D deficiency: an Endocrine Socie ty clinical practi ce guideline. JCEM . 2010; 96(7):1911-30. MARLENA (test code = Performed at: MARLENA) - [facility] [address] [id number] Director: Talha Villavicencio MD, Phone: [phone] Lab Interpretation Abnormal (test code = 51808-2) [id number] 09:08:00 Test Item Value Reference Range Interpretation Comments WBC, UA (test code = None seen See_Comment [Autom ated 5821-4) message] The system which generated this result transmitted reference range : 0 - 5 /hpf. The reference range was not used to interpret this result as normal/abnormal . RBC, UA (test code = 3-10 See_Comment A [Autom ated 06899-8) message] The system which generated this result transmitted reference range : 0 - 2 /hpf. The reference range was not used to interpret this result as normal/abnormal . Epithelial cells (non 0-10 See_Comment [Auto mated renal) (test code = message] The 5787-7) system which generated this result transmitted reference range : 0 - 10 /hpf. Th e reference range was not used to interpret this result as normal/abnormal . Casts (test code = None seen None seen /lpf 23108-3) Bacteria, UA (test None seen None seen/Few code = 5769-5) MARLENA (test code = MARLENA) Performed at: - [facility] [address] [id number] Director: Talha Villavicencio MD, Phone: [phone] Lab Interpretation Abnormal (test code = 35770-0) [facility] reflex to [id number] 09:08:00 Test Item Value Reference Range Interpretation Comments TSH (test code See_Comment [Automated m essage] = 92265-3) The system whic h generated this result transmit vic reference range : 0.450 - 4.500 uIU/mL. The reference range was not used to interpret this result as normal/abnormal . MARLENA (test code Performed at: - = MARLENA) [facility] [address] [id number] Director: Talha Villavicencio MD, Phone: [phone] [facility]
[2022-11-06 18:23] LABS: Urine Blood Trace-intact (Negative); Urine Glucose Negative (Negative); Urine Protein Negative (Negative)
[2022-11-06 18:25] LABS: Absolute Lymphocytes (CBC) 3.4 K/uL (0.7-4.9); Hematocrit 38.2 % (36.0-45.0); Lymphocytes % 29.2 % (15.3-44.8); MCV 86.1 fL (80-100); MPV 6.7 fL (7.6-11.3); RBC Red Blood Cell Count 4.43 M/uL (3.86-4.86)
[2022-11-06] MEDS ORDERED: MECLIZINE HCL 12.5 MG TAB ONE (18:28)
[2022-11-06 18:36] LABS: Urine Bacteria None Seen /HPF (<20); Urine Crystals Unidentified Few /HPF (None Seen); Urine RBC <5 /HPF (None Seen)
[2022-11-06 18:39] LABS: Magnesium 2.3 mg/dL (1.6-2.4); Potassium 3.7 mmol/L (3.5-5.1)
--- NOTE | 2022-11-06 19:09 | RAD REPORT ---
EXAM DESCRIPTION: CT - Head Brain Wo Cont - 11/06/2022 7:02 pm CLINICAL HISTORY: dizziness COMPARISON: No comparisons TECHNIQUE: All CT scans are performed using dose optimization technique as appropriate and may inclu de automated exposure control or mA/KV adjustment according to patient size. FINDINGS: No intracranial hemorrhage, hydrocephalus or extra-axial fluid collection.No areas of brai n edema or evidence of midline shift. The paranasal sinuses and mastoids are clear. The calvarium is intact. IMPRESSION: No acute intracranial abnormality.
--- NOTE | 2022-11-06 20:09 | EDPHYS ---
Physician Documentation [facility] Name: Shy Cuadra Age: 42 yrs Sex: Female : 1980 Arrival Date: 11/06/2022 Time: 16:52 Bed 8 Private MD: ED Physician Pedro Luis Patel HPI: 11/06 17:55 This 42 yrs old Female presents to ER via Ambulatory with complaints of cp Dizziness, Nausea, Ear Pain - ringing. 17:55 The patient presents with sense of spinning. cp 17:55 Onset: The symptoms/episode began/occurred 3 day(s) ago. cp 17:55 Associated signs and symptoms: Pertinent positives: pain and ringing in left ear, cp Pertinent negatives: chest pain, focal weakness, head injury, headache, numbness, vision changes. 17:55 Severity of symptoms: in the emergency department the symptoms are unchanged despite cp home interventions. Patient's baseline: Neuro: alert and fully oriented, Motor: no deficits, Ambulation: walks without assistance, Speech: normal. 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 Flu vaccine is not up to date. - Social history:: Smoking status: Patient denies any tobacco usage or history of. Patient uses alcohol, occasionally. ROS: 18:00 Constitutional: Negative for body aches, chills, fever, poor PO intake. cp 18:00 Eyes: Negative for injury, pain, redness, and discharge. cp 18:00 ENT: Positive for ringing in left ear, Negative for drainage from ear(s), ear pain, sinus congestion, sinus pain, sore throat, difficulty swallowing, difficulty handling secretions. 18:00 Cardiovascular: Negative for chest pain, palpitations. 18:00 Respiratory: Negative for cough, shortness of breath, wheezing. 18:00 Abdomen/GI: Positive for nausea, Negative for abdominal pain, vomiting, diarrhea, constipation. 18:00 : Negative for urinary symptoms. 18:00 Skin: Negative for cellulitis, rash. 18:00 Neuro: Positive for dizziness, Negative for headache, loss of consciousness, numbness, syncope, tingling, weakness. 18:00 All other systems are negative. Exam: 18:05 Head/Face: Normocephalic, atraumatic. cp 18:05 Constitutional: The patient appears in no acute distress, alert, awake, non-diaphoretic, non-toxic, well developed, well nourished. 18:05 Eyes: Periorbital structures: appear normal, Pupils: equal, round, and reactive to cp light and accomodation, Extraocular movements: intact throughout, Conjunctiva: normal, no exudate, no injection, Sclera: no appreciated abnormality, Lids and lashes: appear normal, bilaterally. 18:05 ENT: External ear(s): are unremarkable, Ear canal(s): are normal, clear, TM's: dullness, bilaterally, Nose: is normal, Mouth: Lips: moist, Oral mucosa: pink and intact, moist, Posterior pharynx: Airway: no evidence of obstruction, patent, swelling, is not appreciated, erythema, is not appreciated, exudate, is not appreciated. 18:05 Neck: ROM/movement: is normal, is supple, without pain, no range of motions limitations, no meningismus, no nuchal rigidity. 18:05 Chest/axilla: Inspection: normal. 18:05 Cardiovascular: Rate: normal, Rhythm: regular, Edema: is not appreciated, JVD: is not appreciated. 18:05 Respiratory: the patient does not display signs of respiratory distress, Respirations: normal, no use of accessory muscles, no retractions, labored breathing, is not present, Breath sounds: are clear throughout, no decreased breath sounds, no stridor, no wheezing. 18:05 Abdomen/GI: Inspection: abdomen appears normal, Palpation: abdomen is soft and non-tender, in all quadrants. 18:05 Back: pain, is absent, ROM is normal. cp 18:05 Neuro: Orientation: to person, place \T\ time. Mentation: is normal, Cerebellar function: is grossly normal, Motor: moves all fours, strength is normal, Sensation: is normal, Gait: is steady, at a normal pace, without difficulty. Vital Signs: 17:04 BP 134 / 90; Pulse 96; Resp 17; Temp 98.3(O); Pulse Ox 98% ; Weight 93.44 kg; Height 5 ap3 ft. 5 in. (165.10 cm); 18:00 BP 113 / 80; Pulse 75; Resp 17; Pulse Ox 98% on R/A; kr3 19:20 BP 121 / 85; Pulse 73; Resp 18; Pulse Ox 100% on R/A; kr3 20:28 BP 132 / 79; Pulse 66; Resp 18; Pulse Ox 100% on R/A; kr3 17:04 Body Mass Index 34.28 (93.44 kg, 165.10 cm) ap3 MDM: 17:41 Patient medically screened. cp 18:00 Differential diagnosis: cardiac arrhythmia, generalized weakness, GI bleed, cp hypovolemia, idiopathic dizziness, , vertigo, anemia. 20:09 Data reviewed: vital signs, nurses notes, lab test result(s), EKG, radiologic studies, cp CT scan. 20:09 Counseling: I had a detailed discussion with the patient and/or guardian regarding: the cp historical points, exam findings, and any diagnostic results supporting the discharge/admit diagnosis, lab results, radiology results, to return to the emergency department if symptoms worsen or persist or if there are any questions or concerns that arise at home. Response to treatment: the patient's symptoms have markedly improved after treatment, and as a result, I will discharge patient. ED course: VSS. Patient reports symptoms improved with meds. Will discharge to home for continued monitoring. 11/06 17:52 Order name: Basic Metabolic Panel; Complete Time: 18:43 11/06 19:50 Interpretation: Normal except: GLUC 141. 11/06 17:52 Order name: CBC with Diff; Complete Time: 18:43 cp 11/06 19:50 Interpretation: Normal except: WBC 11.70; MPV 6.7. 11/06 17:52 Order name: Magnesium; Complete Time: 18:43 cp 11/06 17:52 Order name: Urine Microscopic Only; Complete Time: 18:43 cp 11/06 19:50 Interpretation: Reviewed. 11/06 18:23 Order name: Urine Dipstick-Ancillary; Complete Time: 18:43 EDMS 11/06 18:25 Order name: Urine --Ancillary (enter results); Complete Time: 18:43 em1 11/06 17:52 Order name: EKG; Complete Time: 17:53 11/06 17:52 Order name: Cardiac monitoring; Complete Time: 18:55 11/06 17:52 Order name: EKG - Nurse/Tech; Complete Time: 18:55 11/06 17:52 Order name: IV Saline Lock; Complete Time: 18:45 11/06 18:44 Order name: CT Head Brain wo Cont; Complete Time: 19:49 11/06 19:49 Interpretation: Report reviewed. 11/06 19:31 Order name: Glucose, Ancillary Testing; Complete Time: 19:49 EDMS 11/06 17:52 Order name: Labs collected and sent; Complete Time: 18:45 11/06 17:52 Order name: O2 Per Protocol; Complete Time: 18:45 11/06 17:52 Order name: O2 Sat Monitoring; Complete Time: 18:45 11/06 17:52 Order name: Urine Test (obtain specimen); Complete Time: 18:24 cp Administered Medications: 18:20 Drug: Meclizine 25 mg Route: PO; kr3 18:45 Not Given (Patient Refused): Zofran (Ondansetron) 4 mg IVP once; over 2 minutes kr3 Disposition Summary: 11/06/22 20:09 Discharge Ordered Location: Home cp Problem: new cp Symptoms: have improved cp Condition: Stable cp Diagnosis - Dizziness and giddiness cp - Nausea cp Followup: cp - With: Kojo Tomas MD - When: 1 week - Reason: Recheck today's complaints Discharge Instructions: - Discharge Summary Sheet cp - Dizziness cp - Nausea, Adult cp Forms: - Medication Reconciliation Form cp - Thank You Letter cp - Antibiotic Education cp - Prescription Opioid Use cp Prescriptions: - Meclizine 25 mg Oral Tablet - take 1 tablet by ORAL route every 8 hours As needed; 30 tablet; Refills: 0, cp Product Selection Permitted - Zofran 4 mg Oral Tablet - take 1 tablet by ORAL route every 12 hours As needed; 20 tablet; Refills: 0, cp Product Selection Permitted Signatures: Dispatcher [employer] EDMS Dl Quintero PA PA cp Prokisch, Amanda RN RN ap3 Hedy Sorto RN RN kr3 Corrections: (The following items were deleted from the chart) 18:48 18:10 Constitutional: The patient appears in no acute distress, alert, awake, cp non-diaphoretic, non-toxic, well developed, well nourished, cp 18:48 18:10 Head/Face: Normocephalic, atraumatic. cp cp 19:50 19:49 Normal except: WBC 11.70. cp cp 11/07 19:28 12 17:55 Associated signs and symptoms: Pertinent positives: ringing in left ear, cp cp
--- NOTE | 2022-11-06 20:09 | ER ---
Nurse's Notes [facility] Name: Shy Cuadra Age: 42 yrs Sex: Female : 1980 Arrival Date: 11/06/2022 Time: 16:52 Bed 8 Private MD: Diagnosis: Dizziness and giddiness;Nausea Presentation: 11/06 17:04 Chief complaint: Patient states: she has been having ringing in her ears and dizziness ap3 off and on since Thursday11/03/22. Coronavirus screen: At this time, the client does not indicate any symptoms associated with coronavirus-19. Ebola Screen: No symptoms or risks identified at this time. Initial Sepsis Screen: Does the patient meet any 2 criteria? No. Patient's initial sepsis screen is negative. Does the patient have a suspected source of infection? No. Patient's initial sepsis screen is negative. Risk Assessment: Do you want to hurt yourself or someone else? Patient reports no desire to harm self or others. Onset of symptoms was November 03, 2022. 17:04 Method Of Arrival: Ambulatory ap3 17:04 Acuity: DEEPAK 3 ap3 Triage Assessment: 17:06 General: Appears in no apparent distress. Behavior is calm, cooperative. Pain: Denies ap3 pain. Neuro: Level of Consciousness is awake, alert, obeys commands, Oriented to person, place, time, situation, Reports dizziness. Cardiovascular: Patient's skin is warm and dry. Respiratory: Airway is patent Respiratory effort is even, unlabored, Respiratory pattern is regular, symmetrical. GI: Reports nausea. 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 Flu vaccine is not up to date. - Social history:: Smoking status: Patient denies any tobacco usage or history of. Patient uses alcohol, occasionally. Screenin:06 Abuse screen: Denies threats or abuse. Nutritional screening: No deficits noted. ap3 Tuberculosis screening: No symptoms or risk factors identified. 20:29 [facility] ED Fall Risk Assessment (Adult) History of falling in the last 3 months, kr3 including since admission No falls in past 3 months (0 pts) Confusion or Disorientation No (0 pts) Intoxicated or Sedated No (0 pts) Impaired Gait No (0 pts) Mobility Assist Device Used No (0 pt) Altered Elimination No (0 pt) Score/Fall Risk Level 0 - 2 = Low Risk Oriented to surroundings, Maintained a safe environment, Educated pt \T\ family on fall prevention, incl call for assistance when getting out of bed, Assessed \T\ reinforced patient's understanding of fall precautions, Hourly rounding (assess needs \T\ fall precautionary measures) done. Humpty Dumpty Scale Fall Assessment Tool (age< 18yrs) Age 13 years and above (1 pt) Gender Female (1 pt) Diagnosis Other diagnosis (1 pt) Cognitive Impairments Oriented to own ability (1 pt) Environmental Factors Outpatient area (1 pt) Response to Surgery/Sedation/Anesthesia More than 48 hours/ None (1 pt) Medication Usage Other medications/ None (1 pt) Fall Risk Score/ Level Low Fall Risk: </= 11 points. Fall Risk No fall in past 12 months (0 pts). IV access (20 points). Ambulatory Aid- None/Bed Rest/Nurse Assist (0 pts). Gait- Normal/Bed Rest/Wheelchair (0 pts) Mental Status- Oriented to own ability (0 pts). Total Castle Fall Scale indicates No Risk (0-24 pts). Assessment: 17:15 General: Appears in no apparent distress. comfortable, Behavior is calm, cooperative, kr3 appropriate for age. Pain: Denies pain. Neuro: Level of Consciousness is Oriented to person, place, time. Cardiovascular: Patient's skin is warm and dry. Respiratory: Airway is patent Respiratory effort is even, unlabored, Respiratory pattern is regular, symmetrical. GI: Abdomen is round non-distended. : No signs and/or symptoms were reported regarding the genitourinary system. EENT: No signs and/or symptoms were reported regarding the EENT system. Derm: No signs and/or symptoms reported regarding the dermatologic system. Musculoskeletal: Circulation, motion, and sensation intact. 18:15 Reassessment: No changes from previously documented assessment. Patient and/or family kr3 updated on plan of care and expected duration. Pain level reassessed. Patient is alert, oriented x 3, equal unlabored respirations, skin warm/dry/pink. 19:13 Reassessment: No changes from previously documented assessment. Patient and/or family kr3 updated on plan of care and expected duration. Pain level reassessed. Patient is alert, oriented x 3, equal unlabored respirations, skin warm/dry/pink. 20:27 Reassessment: No changes from previously documented assessment. Patient and/or family kr3 updated on plan of care and expected duration. Pain level reassessed. Patient is alert, oriented x 3, equal unlabored respirations, skin warm/dry/pink. Vital Signs: 17:04 BP 134 / 90; Pulse 96; Resp 17; Temp 98.3(O); Pulse Ox 98% ; Weight 93.44 kg; Height 5 ap3 ft. 5 in. (165.10 cm); 18:00 BP 113 / 80; Pulse 75; Resp 17; Pulse Ox 98% on R/A; kr3 19:20 BP 121 / 85; Pulse 73; Resp 18; Pulse Ox 100% on R/A; kr3 20:28 BP 132 / 79; Pulse 66; Resp 18; Pulse Ox 100% on R/A; kr3 17:04 Body Mass Index 34.28 (93.44 kg, 165.10 cm) ap3 ED Course: 16:52 Patient arrived in ED. as 16:56 Dl Quintero PA is PHCP. cp 16:56 Pedro Luis Patel MD is Attending Physician. cp 16:57 Mark Simmons, RN is Primary Nurse. bp 17:05 Triage completed. ap3 17:06 Arm band placed on left wrist. ap3 17:07 Patient has correct armband on for positive identification. Bed in low position. Call ap3 light in reach. Side rails up X 1. Door closed. Noise minimized. 18:07 Hedy Sorto, VIRGEN is Primary Nurse. kr3 19:04 CT Head Brain wo Cont In Process Unspecified. EDMS 20:08 Kojo Tomas MD is Referral Physician. cp 20:28 No provider procedures requiring assistance completed. IV discontinued, intact, kr3 bleeding controlled, No redness/swelling at site. Pressure dressing applied. Administered Medications: 18:20 Drug: Meclizine 25 mg Route: PO; kr3 18:45 Not Given (Patient Refused): Zofran (Ondansetron) 4 mg IVP once; over 2 minutes kr3 Medication: 17:07 VIS not applicable for this client. ap3 Outcome: 20:09 Discharge ordered by . cp 20:28 Discharged to home ambulatory. kr3 20:28 Condition: stable 20:28 Discharge instructions given to patient, Instructed on discharge instructions, follow up and referral plans. medication usage, Demonstrated understanding of instructions, follow-up care, medications, Prescriptions given X 2. 20:30 Patient left the ED. kr3 Signatures: Dispatcher [employer] EDMS Yesenia Urias Corey, PA PA cp Mark Simmons, VIRGEN RN bp Herminia Sanchez RN RN ap3 Hedy Sorto RN RN kr3 Corrections: (The following items were deleted from the chart) 19:12 19:08 General: Appears in no apparent distress. comfortable, Behavior is calm, kr3 cooperative, appropriate for age, kr3 19:12 19:08 Pain: Denies pain. kr3 kr3 19:12 19:08 Neuro: Level of Consciousness is Oriented to person, place, time, kr3 kr3 19:12 19:08 Cardiovascular: Patient's skin is warm and dry. kr3 kr3 19:12 19:08 Respiratory: Airway is patent Respiratory effort is even, unlabored, Respiratory kr3 pattern is regular, symmetrical, kr3 19:12 19:08 GI: Abdomen is round non-distended, kr3 kr3 19:12 19:08 : No signs and/or symptoms were reported regarding the genitourinary system. kr3kr3 19:12 19:08 EENT: No signs and/or symptoms were reported regarding the EENT system. kr3 kr3 19:12 19:08 Derm: No signs and/or symptoms reported regarding the dermatologic system. kr3 kr3 19:12 19:08 Musculoskeletal: Circulation, motion, and sensation intact. kr3 kr3
[2022-11-06 21:02] VITALS: TEMP 98.3
[2022-11-06 21:03] VITALS: O2SAT 100
[2022-11-06 21:04] VITALS: BP 132/79
--- NOTE | 2022-11-07 12:52 | EKG ---
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
== END 2022-11-06 20:30 | disposition home or self-care (01) ==
LOC: ER 16:50
DX: R42 Dizziness and giddiness (principal); R11.0 Nausea
CPT/HCPCS: 93005; 85025; 80048; 36415; 83735; 81025; 82947; 70450; 99283; J8597; 81003; 81015